=== PATIENT | male | born 1960 | race Caucasian/White ===

== ENCOUNTER → 2021-04-05 14:06 | Outpatient (CLI) | payer OTHER, SELFPAY ==
--- NOTE | 2021-04-05 16:03 | NEURO_ITS ---
NCS and/or EMG Patient Report Ordering Doctor: Trell Pham DATE OF SERVICE: 04/05/21 Jordon presents for electrodiagnostic testing of the left upper limb. He reports weakness in the left arm for proximally 8 months after falling out of bed. Electrodiagnostic findings:Left median motor nerve demonstrates normal distal latency and amplitude with borderline reduced conduction velocity. Left ulnar motor responses within normal limits, including conduction across the elbow. Sensory responses demonstrate borderline prolonged left median sensory latency at the wrist.There are 1+ fibrillations noted inExtensor digitorum communis, extensor pollicis longus, extensor indices and first dorsal interosseous. Dec reased recruitment pattern noted in the extensor pollicis longus and extensor digitorum communis. Electrodiagnostic impression:This is an abnormal study in the left upper limb. 1. 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 Consider correlation with neuromuscular ultrasound for better localization. 2. Electrodiagnostic findings demonstrate left-sided median mononeuropathy. This is consistent with a mild left carpal tunnel syndrome
== END ==
PROVIDERS: PCP Family Medicine; Referring Provider Physician Assistant; Visit Provider Physician Assistant
DX: R20.2 Paresthesia of skin (principal)
CPT/HCPCS: 95886; 95910